=== PATIENT | male | born 1990 | race Caucasian/White ===

== ENCOUNTER 2018-07-02 18:47 | Emergency (ER) | payer MEDICARE ==
[~2018-07-02] VITALS: Ht 170.2 cm; Wt 69.1 kg
[2018-07-02 18:58] VITALS: Ht 170.2 cm; Wt 69.1 kg
[2018-07-02] MEDS ORDERED: ANTIBIOTIC (19:02)
[2018-07-02] MEDS ORDERED: BACTRIM 400-801 TAB PO (19:06)
[2018-07-02] MEDS ORDERED: DOXYCYCLINE HY100 M2 PO (19:07)
[2018-07-02] MEDS ORDERED: VISTARIL50 MG PO (19:55)
[2018-07-02 20:35] VITALS: BP 124/83
== END 2018-07-02 20:32 | disposition home or self-care (01) ==
LOC: D.ER 18:47
DX: S40.862A Insect bite (nonvenomous) of left upper arm, initial encounter (principal); W57.XXXA Bitten or stung by nonvenomous insect and other nonvenomous arthropods, initial encounter; Y93.89 Activity, other specified; Y92.89 Other specified places as the place of occurrence of the external cause

== ENCOUNTER 2018-07-06 13:38 | Emergency (ER) | payer MEDICARE ==
[~2018-07-06 13:38] MED LIST: ANTIBIOTIC; BACTRIM 400-801 TAB PO; DOXYCYCLINE HY100 M2 PO; VISTARIL50 MG PO
[2018-07-06 13:46] VITALS: BMI 23.8
[2018-07-06 17:40] VITALS: BP 151/95
== END 2018-07-06 17:41 | disposition home or self-care (01) ==
LOC: D.ER 13:38
DX: L03.113 Cellulitis of right upper limb (principal)

== ENCOUNTER 2020-04-03 18:35 | Inpatient (IN) | payer MEDICARE ==
[~2020-04-03] VITALS: Ht 170.2 cm; Wt 88.5 kg
[2020-04-03] MEDS ORDERED: OMEPRAZOLE20 M1 PO (18:51)
[2020-04-03 19:27] LABS: BASOPHILS 0.6 % (0-2); EOSINOPHILS 4.1 % (0-7); HEMATOCRIT 43.8 % (42.0-54.0); HEMOGLOBIN 14.6 g/dL (13.5-17.5); IMMATURE GRANULOCYTES 0.4 % (0-5); LYMPHOCYTE ABS# 1.31 10x3/uL (1.32-3.57); LYMPHOCYTES 27.9 % (15-50); MCH 29.1 pg (26.0-34.0); MCHC 33.3 g/dL (31.0-37.0); MCV 87.3 fL (80.0-100.0); MEAN PLATELET VOLUME 9.6 fL (7.4-10.4); MONOCYTES 13.6 % (2-11); NEUTROPHILS 53.4 % (40-80); PLATELET COUNT 172 10x3/uL (130-400); RBC 5.02 10x6/uL (4.20-6.10); WBC 4.7 10x3/uL (4.8-10.8)
[2020-04-03 19:40] LABS: CALC OSMOLALITY 270 mosm/kg (275-300); CALCIUM 8.8 mg/dL (8.5-10.1); CARBON DIOXIDE 30.3 mmol/L (21.0-32.0); CHLORIDE - SERUM 101 mmol/L (98-107); CREATININE - SERUM 0.7 mg/dL (0.6-1.3); GLUCOSE 109 mg/dL (74-106); POTASSIUM - SERUM 3.6 mmol/L (3.5-5.1); SODIUM 136 mmol/L (136-145); UREA NITROGEN 8 mg/dL (7-18); eGFR NON AFRICAN AMERICAN > 90 mL/min (90-120)
[2020-04-03 19:53] LABS: ALBUMIN 3.7 g/dL (3.4-5.0); ALKALINE PHOSPHATASE 230 U/L (30-120); AMYLASE - SERUM 33 U/L (25-115); BILIRUBIN - TOTAL 6.57 mg/dL (0.2-1.3); LIPASE 95 U/L (73-393); PROTEIN - SERUM 7.8 g/dL (6.4-8.2); TROPONIN-I < 0.017 ng/mL (0.000-0.060)
[2020-04-03 19:54] LABS: ALT (SGPT) 3640 U/L (10-68)
[2020-04-03 20:03] LABS: BILIRUBIN NEGATIVE (NEGATIVE); KETONE NEGATIVE (NEGATIVE); NITRITE NEGATIVE (NEGATIVE); UROBILINOGEN NORMAL mg/dL (< 2)
[2020-04-03 20:04] LABS: SQUAMOUS EPITHELIAL NONE SEEN HPF (0-4); WHITE CELLS - URINE 0-5 HPF (0-1)
[2020-04-03 20:05] LABS: BACTERIA FEW HPF (NONE SEEN)
[2020-04-03 21:00] VITALS: BP 128/73
[2020-04-03 21:48] LABS: APTT 35.6 SECONDS (22.8-39.4); INR 1.15 (0.85-1.17); PROTIME 13.6 SECONDS (11.6-15.0)
--- NOTE | 2020-04-04 00:15 | NUR ---
RECEIVED PT TO FLOOR FROM ER VIA WHEELCHAIR. REVIEWED HOME MEDS AND HISTORY. DENIES PAIN AND NAUSEA. COLLECTED URINE SPECIMEN AND SENT TO LAB. PT IS UP AD STEPAN. NO NEEDS. WILL REASSESS AND CONTINUE TO NONITOR.
[2020-04-04] MEDS ORDERED: ACETAMINOPHEN500 M1 PO (00:20)
[2020-04-04 01:21] VITALS: BP 146/83
[2020-04-04 01:52] LABS: UDS - AMPHET NEGATIVE QUAL (NEGATIVE); UDS - BARB NEGATIVE QUAL (NEGATIVE); UDS - BENZO NEGATIVE QUAL (NEGATIVE); UDS - COCAINE NEGATIVE QUAL (NEGATIVE); UDS - OPIATE NEGATIVE QUAL (NEGATIVE); UDS - PCP NEGATIVE QUAL (NEGATIVE); UDS - THC NEGATIVE QUAL (NEGATIVE)
[2020-04-04 03:12] VITALS: BMI 30.6
[2020-04-04 04:29] LABS: BASOPHILS 0.8 % (0-2); EOSINOPHILS 4.6 % (0-7); HEMATOCRIT 40.3 % (42.0-54.0); IMMATURE GRANULOCYTES 0.4 % (0-5); LYMPHOCYTE ABS# 2.17 10x3/uL (1.32-3.57); LYMPHOCYTES 41.8 % (15-50); MCH 28.3 pg (26.0-34.0); MCHC 32.3 g/dL (31.0-37.0); MCV 87.8 fL (80.0-100.0); MEAN PLATELET VOLUME 9.7 fL (7.4-10.4); MONOCYTES 9.8 % (2-11); NEUTROPHIL ABS# 2.21 10x3/uL (1.78-5.38); NEUTROPHILS 42.6 % (40-80); PLATELET COUNT 176 10x3/uL (130-400); RBC 4.59 10x6/uL (4.20-6.10); RDW 13.2 % (11.5-14.5); WBC 5.2 10x3/uL (4.8-10.8)
[2020-04-04 04:41] LABS: APTT 32.4 SECONDS (22.8-39.4); INR 1.16 (0.85-1.17); PROTIME 13.7 SECONDS (11.6-15.0)
[2020-04-04 04:57] LABS: ALBUMIN 3.2 g/dL (3.4-5.0); ALKALINE PHOSPHATASE 204 U/L (30-120); BILIRUBIN - TOTAL 5.73 mg/dL (0.2-1.3); CALC OSMOLALITY 272 mosm/kg (275-300); CALCIUM 8.3 mg/dL (8.5-10.1); CARBON DIOXIDE 29.3 mmol/L (21.0-32.0); CHLORIDE - SERUM 103 mmol/L (98-107); CREATININE - SERUM 0.7 mg/dL (0.6-1.3); GLUCOSE 122 mg/dL (74-106); MAGNESIUM - SERUM 2.4 mg/dL (1.8-2.4); PHOSPHOROUS 3.3 mg/dL (2.5-4.9); POTASSIUM - SERUM 3.5 mmol/L (3.5-5.1); SODIUM 137 mmol/L (136-145); UREA NITROGEN 6 mg/dL (7-18); eGFR NON AFRICAN AMERICAN > 90 mL/min (90-120)
[2020-04-04 04:59] LABS: ALT (SGPT) 3029 U/L (10-68)
[2020-04-04 05:56] VITALS: BP 140/70
--- NOTE | 2020-04-04 07:48 | NUR ---
PT IN BED WITH EYES CLOSED UPON ENTERING. AROUSES EASILY TO VOICE. DENIES ANY NEEDS AT THIS TIME. BED IN LOWEST POSITION, BED RAILS X2, CALL LIGHT WITHIN REACH. WILL CONTINUE POC.
--- NOTE | 2020-04-04 08:23 | NUR ---
PT UP RIGHT IN BED EATING BREAKFAST. ADMINISTERED MEDICATION, TOLERATED WELL. DENIES ANY NEEDS AT THIS TIME. WILL CONTINUE POC.
[2020-04-04 08:39] VITALS: BP 130/61
--- NOTE | 2020-04-04 10:27 | NUR ---
PATIENT IS WITHOUT DISTRESS.MONITOR
[2020-04-04 13:31] VITALS: BP 142/76
[2020-04-04 17:06] VITALS: BP 140/71
--- NOTE | 2020-04-04 17:18 | NUR ---
PT AAOX4, HUNG IV FLUIDS. RESTING COMFORTABLY IN BED. DENIES ANY NEEDS AT THIS TIME. WILL CONTINUE POC.
[2020-04-04 18:48] LABS: BILIRUBIN - DIRECT 4.55 mg/dL (0.00-0.30)
[2020-04-04 19:00] LABS: BILIRUBIN - INDIRECT 1.04 mg/dL (0.00-1.00); BILIRUBIN - TOTAL 5.59 mg/dL (0.2-1.3)
[2020-04-04 20:51] VITALS: BP 129/79
[2020-04-05 06:16] LABS: EOSINOPHILS 5.4 % (0-7); HEMATOCRIT 39.2 % (42.0-54.0); HEMOGLOBIN 12.8 g/dL (13.5-17.5); IMMATURE GRANULOCYTES 0.2 % (0-5); LYMPHOCYTES 32.1 % (15-50); MCHC 32.7 g/dL (31.0-37.0); MCV 88.7 fL (80.0-100.0); MEAN PLATELET VOLUME 9.8 fL (7.4-10.4); MONOCYTES 15.3 % (2-11); NEUTROPHIL ABS# 1.86 10x3/uL (1.78-5.38); PLATELET COUNT 193 10x3/uL (130-400); RBC 4.42 10x6/uL (4.20-6.10); RDW 13.5 % (11.5-14.5); WBC 4.1 10x3/uL (4.8-10.8)
[2020-04-05 06:36] VITALS: BP 129/57
[2020-04-05 06:44] LABS: ALKALINE PHOSPHATASE 188 U/L (30-120); CALCIUM 8.3 mg/dL (8.5-10.1); CARBON DIOXIDE 26.9 mmol/L (21.0-32.0); CHLORIDE - SERUM 107 mmol/L (98-107); CREATININE - SERUM 0.7 mg/dL (0.6-1.3); GLUCOSE 103 mg/dL (74-106); MAGNESIUM - SERUM 2.2 mg/dL (1.8-2.4); POTASSIUM - SERUM 3.5 mmol/L (3.5-5.1); PROTEIN - SERUM 6.6 g/dL (6.4-8.2); SODIUM 140 mmol/L (136-145); eGFR NON AFRICAN AMERICAN > 90 mL/min (90-120)
[2020-04-05 06:49] LABS: ALT (SGPT) 2089 U/L (10-68); CALC OSMOLALITY 275 mosm/kg (275-300); UREA NITROGEN 4 mg/dL (7-18)
[2020-04-05 08:34] VITALS: BP 127/64
[2020-04-05 11:37] LABS: INR 1.15 (0.85-1.17); PROTIME 13.6 SECONDS (11.6-15.0)
[2020-04-05 11:49] VITALS: BP 134/75
[2020-04-05 13:39] VITALS: Ht 170.2 cm; Wt 88.5 kg
[2020-04-05 15:55] VITALS: BP 155/84
[2020-04-05 20:00] VITALS: BP 146/77
--- NOTE | 2020-04-05 22:24 | NUR ---
PT RESTING IN BED, FAMILY/FRIEND AT BEDSIDE. NO PAIN NOR DISTRESS NOTED AT THIS TIME. NO NEEDS AT THIS. CALL LIGHT WITH IN REACH
[2020-04-06] VITALS: BP 133/71
[2020-04-06 04:00] VITALS: BP 117/54
--- NOTE | 2020-04-06 06:01 | NUR ---
PT SLEPT THROUGHOUT THE NIGHT. NO COMPLAINTS OF PAIN NOR DISTRESS.
[2020-04-06 06:33] LABS: ALKALINE PHOSPHATASE 195 U/L (30-120); ALT (SGPT) 1554 U/L (10-68); BILIRUBIN - TOTAL 6.11 mg/dL (0.2-1.3); CALC OSMOLALITY 275 mosm/kg (275-300); CALCIUM 8.4 mg/dL (8.5-10.1); CHLORIDE - SERUM 104 mmol/L (98-107); CREATININE - SERUM 0.7 mg/dL (0.6-1.3); GLUCOSE 93 mg/dL (74-106); POTASSIUM - SERUM 3.4 mmol/L (3.5-5.1); PROTEIN - SERUM 6.7 g/dL (6.4-8.2); SODIUM 140 mmol/L (136-145); UREA NITROGEN 4 mg/dL (7-18); eGFR NON AFRICAN AMERICAN > 90 mL/min (90-120)
[2020-04-06 07:08] LABS: BASOPHILS 1.3 % (0-2); EOSINOPHILS 6.4 % (0-7); HEMATOCRIT 39.6 % (42.0-54.0); HEMOGLOBIN 12.9 g/dL (13.5-17.5); IMMATURE GRANULOCYTES 0.9 % (0-5); LYMPHOCYTE ABS# 1.46 10x3/uL (1.32-3.57); LYMPHOCYTES 31.2 % (15-50); MCH 28.9 pg (26.0-34.0); MCHC 32.6 g/dL (31.0-37.0); MCV 88.8 fL (80.0-100.0); MEAN PLATELET VOLUME 10.3 fL (7.4-10.4); MONOCYTES 13.2 % (2-11); PLATELET COUNT 208 10x3/uL (130-400); RBC 4.46 10x6/uL (4.20-6.10); RDW 13.6 % (11.5-14.5); WBC 4.7 10x3/uL (4.8-10.8)
[2020-04-06 07:57] LABS: INR 1.12 (0.85-1.17); PROTIME 13.3 SECONDS (11.6-15.0)
[2020-04-06 10:39] VITALS: BP 137/87
[2020-04-06 13:13] LABS: HEPATITIS C ANTIBODY 0.1 S/CO RAT (0.0-0.9)
[2020-04-06 14:14] VITALS: BP 132/79
[2020-04-06 18:28] VITALS: BP 142/76
[2020-04-06 20:00] VITALS: BP 142/79
[2020-04-07 04:00] VITALS: BP 135/69
[2020-04-07 05:56] LABS: HEMATOCRIT 39.4 % (42.0-54.0); HEMOGLOBIN 12.8 g/dL (13.5-17.5); LYMPHOCYTE ABS# 1.47 10x3/uL (1.32-3.57); MCH 28.9 pg (26.0-34.0); MCHC 32.5 g/dL (31.0-37.0); MCV 88.9 fL (80.0-100.0); MEAN PLATELET VOLUME 10.4 fL (7.4-10.4); NEUTROPHIL ABS# 4.85 10x3/uL (1.78-5.38); PLATELET COUNT 242 10x3/uL (130-400); RBC 4.43 10x6/uL (4.20-6.10); RDW 13.7 % (11.5-14.5)
[2020-04-07 06:02] LABS: INR 1.12 (0.85-1.17); PROTIME 13.3 SECONDS (11.6-15.0)
[2020-04-07 06:06] LABS: ALKALINE PHOSPHATASE 197 U/L (30-120); BILIRUBIN - TOTAL 6.88 mg/dL (0.2-1.3); CALC OSMOLALITY 271 mosm/kg (275-300); CALCIUM 8.6 mg/dL (8.5-10.1); CHLORIDE - SERUM 103 mmol/L (98-107); CREATININE - SERUM 0.8 mg/dL (0.6-1.3); GLUCOSE 119 mg/dL (74-106); MAGNESIUM - SERUM 2.1 mg/dL (1.8-2.4); PROTEIN - SERUM 6.9 g/dL (6.4-8.2); SODIUM 137 mmol/L (136-145); UREA NITROGEN 3 mg/dL (7-18); eGFR NON AFRICAN AMERICAN > 90 mL/min (90-120)
[2020-04-07 06:07] LABS: ALT (SGPT) 1195 U/L (10-68)
[2020-04-07 09:28] VITALS: BP 137/87
[2020-04-07 10:00] LABS: LYMPHOCYTES 22 % (15-50); MONOCYTES 9 % (2-11); NEUTROPHILS 68 % (40-80); PLATELET ESTIMATE NORMAL; ROULEAUX OCC
[2020-04-07] MEDS ORDERED: CHRONULAC30 ML PO (11:12)
[2020-04-07] MEDS ORDERED: NICODERM CQ1 EAC3 TRANSDERM (11:12)
[2020-04-07 12:31] VITALS: BP 128/72
== END 2020-04-07 15:12 | disposition home or self-care (01) | DRG 442 ==
LOC: D.ER 18:35 → D.EDHOLD 21:43 → OBSVTIME 21:43 → D.MS 23:43
PROVIDERS: Family Medicine; Surgery; ADMIT Family Medicine; ATTEND Family Medicine
DX: B15.9 Hepatitis A without hepatic coma (principal); F17.203 Nicotine dependence unspecified, with withdrawal; E80.6 Other disorders of bilirubin metabolism; R74.01 Elevation of levels of liver transaminase levels; E86.0 Dehydration; R11.2 Nausea with vomiting, unspecified; D64.9 Anemia, unspecified

== ENCOUNTER → 2020-04-16 10:58 | Outpatient (CLI) | payer MEDICARE ==
[2020-04-05 13:39] VITALS: BMI 30.5
[~2020-04-16 10:58] MED LIST changes: +ACETAMINOPHEN500 M1 PO; +CHRONULAC30 ML PO; +NICODERM CQ1 EAC3 TRANSDERM; +OMEPRAZOLE20 M1 PO
[2020-04-16 11:41] LABS: ALBUMIN 3.7 g/dL (3.4-5.0); BILIRUBIN - DIRECT 1.06 mg/dL (0.00-0.30); BILIRUBIN - INDIRECT 0.38 mg/dL (0.00-1.00); BILIRUBIN - TOTAL 1.44 mg/dL (0.2-1.3); PROTEIN - SERUM 7.9 g/dL (6.4-8.2)
[2020-04-17 10:11] LABS: HEPATITIS C ANTIBODY <0.1 S/CO RAT (0.0-0.9)
== END | disposition home or self-care (01) ==
LOC: D.LAB 10:58
PROVIDERS: ATTEND Nurse Practitioner
DX: E80.6 Other disorders of bilirubin metabolism (principal); B15.9 Hepatitis A without hepatic coma

== ENCOUNTER → 2020-05-14 10:43 | Outpatient (CLI) | payer MEDICARE ==
[2020-04-05 13:39] VITALS: BMI 30.5
[2020-05-15 11:09] LABS: HEPATITIS C ANTIBODY <0.1 (0.0-0.9)
== END | disposition home or self-care (01) ==
LOC: D.LAB 10:43
PROVIDERS: ATTEND Nurse Practitioner
DX: B15.9 Hepatitis A without hepatic coma (principal)

== ENCOUNTER → 2020-06-25 11:52 | Outpatient (CLI) | payer MEDICARE ==
[2020-04-05 13:39] VITALS: BMI 30.5
[2020-06-26 10:10] LABS: HEPATITIS C ANTIBODY <0.1 S/CO RAT (0.0-0.9)
== END | disposition home or self-care (01) ==
LOC: D.LAB 11:52
PROVIDERS: ATTEND Nurse Practitioner
DX: B15.9 Hepatitis A without hepatic coma (principal)